=== PATIENT | female | born 1995 | race Hispanic/Latino ===

== ENCOUNTER 2017-11-24 07:49 | Emergency (ER) | payer SELFPAY ==
[2017-11-24 08:21] LABS: #Eosinphils 0.2 thou/uL (0.0-0.7); #Lymphocytes 3.2 thou/uL (1.20-3.40); #Monocytes 0.6 thou/uL (0.11-0.59); #Neutrophils 6.4 thou/uL (1.40-6.50); %Basophils 0.4 % (0.0-1.0); %Eosinophils 1.6 % (0.0-10.0); %Lymphocytes 30.7 % (21.0-51.0); %Monocytes 5.6 % (0.0-10.0); %Neutrophils 61.8 % (42.0-75.0); Hemoglobin 10.6 g/dL (12.0-16.0); Mean Corpuscular HGB CONC 32.4 g/dL (32.0-36.0); Mean Corpuscular Volume 71.2 fL (78.0-98.0); Mean Platelet Volume 8.7 fL (7.4-10.4); Platelet Count 307 thou/uL (130-400); RBC Distribution Width 14.2 % (11.5-14.5); Red Blood Cell (RBC) Count 4.61 mill/uL (4.20-5.40); White Blood Cell (WBC) Count 10.3 thou/uL (4.8-10.8)
[2017-11-24 08:27] LABS: Bilirubin Negative (Negative); Blood, Urine Negative (Negative); Clarity CLOUDY (Clear); Glucose, Urine (Dipstick) Negative (Negative); Leukocyte Small (Negative); Nitrite Positive (Negative); Protein, Urine (Dipstick) Negative (Neg-Trace); Specific Gravity, Urine 1.028 (1.002-1.036); Urobilinogen 0.2 mg/dL (0.2-1.0); pH, Urine 5.5 (5.0-9.0)
[2017-11-24 08:30] LABS: Bacteria/HPF 4+ HPF (None Seen); Pathc Cast-AUWi Flag 1.01 (0-2.49)
[2017-11-24 08:43] LABS: Hyaline Casts/LPF 0-3 HYALINE CAST LPF (0-3 Hyaline); RBC/HPF 0-3 HPF (0-3)
[2017-11-24 09:01] LABS: Pregnancy Test - Urine (BHCG) POSITIVE (Negative); Pregu Control Background? CLEAR/WHITE (CLR/WHITE); Pregu Control Bar Appear? YES (CONTROL BAR); Specific Gravity 1.028 (1.002-1.036)
[2017-11-24] MEDS ORDERED: cefTRIAXone\\ROCEPHIN 1 GM VIAL ONE (09:02)
[2017-11-24] MEDS ORDERED: Lidocaine 1% PF 5 ML VIAL ONE (09:02)
[2017-11-24 09:33] LABS: Elliptocytes SLIGHT = 2-5 cells (100X) (0-1/hpf); MDiff Complete? YES; Microcytosis MODERATE=15-30 cells (100X) (0-5/hpf); Ovalocytes SLIGHT = 2-5 cells (100X) (0-1/hpf); PLT Morphology Comment Appears Adequate; Polychromasia SLIGHT = 2-3 cells (100X) (0-2/hpf)
--- NOTE | 2017-11-24 10:31 | ULT ---
ULTRASOUND PELVIC TRANSVAGINAL WITH DOPPLER: HISTORY: Vaginal pain. COMPARISON: None. FINDINGS: Real-time, tanner scale, and color evaluation and spectral analysis of the pelvis was performed with tr ansabdominal and transvaginal approach. The uterus measures 9.1 x 4.5 x 4.7 cm. The right ovary measures 2.9 x 2.1 x 2.2 cm and the let ovar y measures 2.4 x 1.2 x 1.6 cm. Adequate vascular flow to both ovaries. There appears to be some decidualized endometrium. Yolk sac is present measuring 3 mm. A gestationa l sac is present with mean sac diameter of 1.2 cm. No crown-rump length seen at this time. IMPRESSION: Findings suggesting an early . Followup recommended. No pole is identified. Followu p HCG and ultrasound recommended. POS: [facility]
[2017-11-24 23:19] LABS: Chlamydia by PCR Not Detected (NotDetected); GC by PCR Not Detected (NotDetected)
== END 2017-11-24 10:24 | disposition home or self-care (01) ==
LOC: ERS 07:49
DX: O02.1 Missed abortion (principal); F41.9 Anxiety disorder, unspecified; F32.9 Major depressive disorder, single episode, unspecified; Z87.891 Personal history of nicotine dependence
CPT/HCPCS: 36415; 76856; 81003; 81015; 81025; 84702; 85025; 86900; 86901; 87077; 87086; 87186; 87480; 87491; 87510; 87591; 87660; 96372; J0696; J2001